=== PATIENT | female | born 1995 | race Hispanic/Latino ===

== ENCOUNTER → 2017-02-19 | Outpatient (CLI) | payer OTHER ==
--- NOTE | 2017-02-19 12:15 | Diagnostic Imaging Report ---
First trimester OB ultrasound. INDICATION: Z34.00. FINDINGS: There is a normal-appearing single intrauterine . An embryo is seen with cardiac activity at 136 beats per minute. The crown-rump length is at 6 weeks and 4 days. WILFRIDO is 10/11/17. IMPRESSION: Live single intrauterine . Dictated by: Dictated on workstation # [id number]
== END ==
LOC: RAD 11:26
PROVIDERS: ATTEND Family Medicine
DX: Z36 Encounter for antenatal screening of mother (principal); Z3A.01 Less than 8 weeks gestation of pregnancy
CPT/HCPCS: 76801

== ENCOUNTER → 2017-05-31 | Outpatient (CLI) | payer SELFPAY ==
--- NOTE | 2017-05-31 16:25 | Diagnostic Imaging Report ---
INDICATION: anatomy survey. TECHNIQUE: Multiple real-time grayscale images were obtained over the gravid uterus. COMPARISON: None FINDINGS: There is a single live intrauterine in transverse lie. The placenta is anteriorly located and there is no evidence of placenta abruption. biometric data is supplied below. The amniotic fluid appears visually appropriate. anatomy survey was performed and the following structures were visualized and are as follows: Cerebral ventricles, cerebellum, cisterna magna, four-chamber heart, kidneys, stomach, bladder, spine and three-vessel cord. Biometrical measurements are as follows: Biparietal 5.4 cm, age 22 weeks 3 days. Head circumference 18.8 cm, age 21 weeks 1 days. Abdominal circumference 15.9 cm, age 21 weeks 1 days. Femur length 3.5 cm, age 21 weeks 0 days. Sonographic estimate age: 21 weeks 3 days. Sonographic estimated date of delivery: 10/08/17. Estimated Weight: 393 gm (+/- 57 gm). LMP percentile: 46%. heart rate: 152 beats per minute. number: 1 of 1. IMPRESSION: 1. The umbilical cord insertion on the abdomen is not well visualized due to positioning. Recommend followup targeted ultrasound to reassess umbilical cord insertion. 2. Otherwise, normal anatomy survey. Dictated by: Dictated on workstation # [id number]
== END ==
LOC: RAD 11:59
PROVIDERS: ATTEND Family Medicine
DX: Z36.89 Encounter for other specified antenatal screening (principal); Z3A.21 21 weeks gestation of pregnancy
CPT/HCPCS: 76805

== ENCOUNTER → 2017-09-19 | Outpatient (CLI) | payer OTHER ==
--- NOTE | 2017-09-19 14:10 | Diagnostic Imaging Report ---
INDICATION: Small for gestational age. TECHNIQUE: Multiple real-time grayscale images were obtained over the gravid uterus. COMPARISON: 05/31/2017. FINDINGS: There is a single live fetus in a cephalic presentation. The placenta is anterior. The amniotic fluid volume is normal. heart rate is recorded at 110 beats per minute. The cord insertion is again not well seen on today's study. No gross abnormality is seen. Biometrical measurements are as follows: Biparietal 8.81 cm, age 35 weeks 5 days. Head circumference 32.35 cm, age 36 weeks 5 days. Abdominal circumference 30.1 cm, age 34 weeks 1 days. Femur length 6.69 cm, age 34 weeks 3 days. Sonographic estimate age: 35 weeks 2 days. Sonographic estimated date of delivery: 10/22/2017. Estimated Weight: 2463 gm (+/- 360 gm). LMP percentile: 8%. heart rate: 110 beats per minute. number: 1 of 1. IMPRESSION: Single live IUP measuring approximately 35 weeks gestational age, lagging approximately 2 weeks when compared with prior ultrasound from 05/31/2017. cord insertion is not well visualized. Dictated by: Dictated on workstation # [id number]
== END ==
LOC: RAD 12:47
PROVIDERS: ATTEND Family Medicine
DX: O36.5930 Maternal care for other known or suspected poor fetal growth, third trimester, not applicable or unspecified (principal); Z3A.35 35 weeks gestation of pregnancy
CPT/HCPCS: 76816

== ENCOUNTER 2017-10-04 13:15 | Outpatient (CLI) | payer OTHER ==
[~2017-10-04] VITALS: Ht 157.5 cm; Wt 63.1 kg
[2017-10-04 13:25] VITALS: BP 115/76
[2017-10-04 13:55] VITALS: BP 102/73
[2017-10-04] MEDS ORDERED: PREN1TAB86 PO (14:05)
[2017-10-04 14:25] VITALS: BP 109/77
[2017-10-04 14:55] VITALS: BP 108/75
[2017-10-04 16:00] VITALS: BP 108/75
--- NOTE | 2017-10-07 20:54 | Physician Query-Final Dx ---
NISREEN NGO 10/07/172053: Clinic Account Progress/Dx Physician Query: Please give diagnosis Date of Service Oct 04, 2017 at 13:15 TA HO DO 10/09/17 0904: Clinic Account Progress/Dx DIAGNOSIS: Diagnosis 1. at 39wk 2. contractions, not in active labor NISREEN NGO Oct 07, 2017 20:54 TA HO DO October 09, 2017 09:04
== END 2017-10-04 16:00 | disposition home or self-care (01) ==
LOC: LDRP 13:15 → WSo 13:15
PROVIDERS: ATTEND Family Medicine
DX: O47.1 False labor at or after 37 completed weeks of gestation (principal); Z3A.39 39 weeks gestation of pregnancy
CPT/HCPCS: 99213

== ENCOUNTER 2017-10-05 09:25 | Observation (INO) | payer OTHER ==
[~2017-10-05] VITALS: Ht 157.5 cm; Wt 63.1 kg
[~2017-10-05 09:25] MED LIST: PREN1TAB86 PO
[2017-10-05 09:55] VITALS: BP 133/89
[2017-10-05] MEDS ORDERED: D5 LR IV SOLUTION 1,000 ML IV SCH (10:26)
[2017-10-05] MEDS ORDERED: BUTORPHANOL INJ 2 MG/ML (STADOL) VIAL IV PRN (10:30)
[2017-10-05] MEDS ORDERED: TERBUTALINE INJ 1 MG/ML (BRETHINE) AMP SC ONE (10:30)
[2017-10-05] MEDS ORDERED: ONDANSETRON 4 MG/2 ML (SDV) Z0FRAN IVP PRN (10:30)
[2017-10-05] MEDS ORDERED: ERYTHROMYCIN OPHTH OINT 1 GM (SINGLE USE) TUBE ONE (10:34)
[2017-10-05] MEDS ORDERED: PHYTONADIONE (VIT. K) NEONATAL 1 MG/0.5 ML AMP ONE (10:34)
--- OUTSIDE RECORDS SUMMARY | 2017-10-05 10:47 | XMS REPORT ---
Author Author RAMÓN GLOVER Organization [facility] Address [address] [place] [address] Care Team Providers Care Rn Advanced Name Role Phone RAMÓN GLOVER Unavailable PROBLEMS Type Condition ICD9-CM Code MAP64-CZ Code Onset Dates Condition Status SNOMED Code Problem Missed periods N92.6 Active 26772901 ALLERGIES No Known Allergies ENCOUNTERS Encounter Location Date Diagnosis [place] [address] [address] October, [place] [address] [address] October, [facility] [address] [address] Sep, [place] [address] [address] Sep, Third trimester Z34.93 ; 36 weeks gestation of Z3A.36 and Small for gestational age P05.10 [place] [address] [address] [place] [id number] [place] [address] Sep, Third trimester Z34.93 and 35 weeks gestation of Z3A.35 [place] [address] [place] [id number] [place] [address] Aug, Third trimester Z34.93 ; Encounter for immunization Z23 and 31 weeks gestation of Z3A.31 [place] [address] [address] Jun, 26 weeks gestation of Z3A.26 and Second trimester Z34.92 [place] [address] [address] Jun, Second trimester Z34.92 and 22 weeks gestation of Z3A.22 [facility] [address] [place] [id number] [place] [address] May, [facility] [address] [place] [id number] [place] [address] 8[address] May, Second trimester Z34.92 and 18 weeks gestation of Z3A.18 [place] [address] [address] [place] [id number] [place] [address] Apr, 14 weeks gestation of Z3A.14 and Second trimester Z34.92 [place] [address] [address] [place] [id number] [place] [address]77- 99[address] Mar, 10 weeks gestation of Z3A.10 and First trimester Z34.90 [place] [address] [place] [id number] [place] [address]- [address] Feb, [place] [address] [place] [id number] [place] [address]- [address] Feb, [facility] [address] [place] [id number] [place] [address]- 12[address] Feb, [place] [address] [place] [id number] [place] [address] Feb, care in first trimester Z34.91 ; Normal , first Z34.00 and 9 weeks gestation of Z3A.09 [place] [address] [address] [place] [id number] [place] [address]- [address] Jan, test positive Z32.01 [facility] [address] [place] [id number] [place] [address] 11252- 287[address] Nov, [place] [address] [address] Nov, Missed periods N92.6 [place] [address] [place] [id number] [place] [address]27- [address] Nov, [place] [address] [address] [facility] [id number] [place] [address] Sep, Missed periods N92.6 [facility] [address] [facility] [id number] [place] [address] Sep, Encounter for test Z32.00 IMMUNIZATIONS No Known Immunizations SOCIAL HISTORY Never Assessed REASON FOR VISIT OB-intake PLAN OF CARE Activity Details Follow Up 4 Weeks Reason: VITAL SIGNS Height 61 in 2017-02-13 Weight 124.1 lbs 2017-02-13 Temperature 97.8 degrees Fahrenheit 2017-02-13 Heart Rate 76 bpm 2017-02-13 Respiratory Rate 20 2017-02-13 BMI 23.448 kg/m2 2017-02-13 Blood pressure systolic 100 mmHg 2017-02-13 Blood pressure diastolic 76 mmHg 2017-02-13 MEDICATIONS Unknown Medications RESULTS Name Result Date Reference Range TSH () 2017-02-13 TSH 4.250 0.450-4.500 CBC 2017-02-13 WBC 6.7 3.4-10.8 RBC 4.89 3.77-5.28 Hemoglobin 13.4 11.1-15.9 Hematocrit 40.3 34.0-46.6 MCV 82 79-97 MCH 27.4 26.6-33.0 MCHC 33.3 31.5-35.7 RDW 14.1 12.3-15.4 Platelets 253 150-379 Neutrophils 50 Lymphs 34 Monocytes 10 Eos 6 Basos 0 Neutrophils (Absolute) 3.3 1.4-7.0 Lymphs (Absolute) 2.3 0.7-3.1 Monocytes(Absolute) 0.6 0.1-0.9 Eos (Absolute) 0.4 0.0-0.4 Baso (Absolute) 0.0 0.0-0.2 Immature Granulocytes 0 Immature Grans (Abs) 0.0 0.0-0.1 ANTIBODY SCREEN 2017-02-13 Antibody Screen Negative Negative BLOOD TYPE/RH FACTOR 2017-02-13 ABO Grouping O Rh Factor Positive RUBELLA ANTIBODIES, IgG 2017-02-13 Rubella Antibodies, IgG 1.55 Immune >0.99 CULTURE, URINE 2017-02-13 Urine Culture, Routine Final report Result 1 No growth TRICHOMONAS (IN HOUSE) 2017-02-13 TRICHOMONAS negative Control + Lot # [id number] Exp date 03/2018 URINE DRUG SCREEN (IN HOUSE) 2017-02-13 Lot # [id number] Exp date Control + COCAINE Negative AMPH Negative MTD Negative THC Negative OPIATE Negative BENZO Negative PCP Negative BAR Negative OXY Negative MAMP Negative TCA Negative BUP Negative MDMA Negative UA LONG DIP (IN HOUSE) 2017-02-13 Lot # [id number] Exp date 25/01/31 Clarity Clear Color Yellow Odor None GLU Negative SARAH Negative KET Negative SG 1.025 BLO Trace-intact pH 5.0 Protein Negative URO 0.2 NIT Negative OZIEL Negative Lot # Exp date BACTERIAL VAGINOSIS (IN HOUSE) 2017-02-13 RESULTS POSITIVE Control + Lot # [id number] Exp date 03/2018 Ultrasound : OB, Early <14 WEEKS 2017-02-19 CULTURE, GENITAL 2017-02-13 Genital Culture, Routine Final report Result 1 GC/CHLAM PROBE (STATE) 2017-02-13 CHLAMYDIA negative GC negative SYPHILIS (STATE) 2017-02-13 HIV (STATE) 2017-02-13 HEP B SURFACE ANTIGEN (STATE) 2017-02-13 HEP B ANTIBODY non reactive HEP B ANTIBODY (RML) HEP B ANTIBODY (STATE) PROCEDURES Procedure Date Ordered Result Body Site RUBELLA ANTIBODY Feb 13, 2017 COMPLETE CBC W/AUTO DIFF WBC Feb 13, 2017 BLOOD TYPING, RH (D) Feb 13, 2017 RBC ANTIBODY SCREEN Feb 13, 2017 URINE CULTURE/COLONY COUNT Feb 13, 2017 No Charge Feb 13, 2017 ASSAY THYROID STIM HORMONE Feb 13, 2017 BLOOD TYPING, ABO Feb 13, 2017 CULTURE, BACTERIA, OTHER Feb 13, 2017 URINALYSIS, AUTO, W/O SCOPE Feb 13, 2017 TRICHOMONAS ASSAY W/OPTIC Feb 13, 2017 VENIPUNCT, ROUTINE* Feb 13, 2017 DRUG TEST PRSMV DIR OPT OBS Feb 13, 2017 INSTRUCTIONS MEDICATIONS ADMINISTERED No Known Medications
--- OUTSIDE RECORDS SUMMARY | 2017-10-05 10:47 | XMS REPORT ---
Author Author RAMÓN GLOVER Organization [facility] Address [address] [place] [address] Care Team Providers Care Marine Technician Name Role Phone RAMÓN GLOVER Unavailable PROBLEMS Type Condition ICD9-CM Code ZVT16-GU Code Onset Dates Condition Status SNOMED Code Problem Missed periods N92.6 Active [id number] ALLERGIES No Information ENCOUNTERS Encounter Location Date Diagnosis [facility] [address] [address] October, [place] [address] [address] October, [facility] [address] [address] Sep, [facility] [address] [place] [id number] [place] [address] Sep, Third trimester Z34.93 ; 36 weeks gestation of Z3A.36 and Small for gestational age P05.10 [place] [address] [address] [place] [id number] [place] [address] 03066- [address] Sep, Third trimester Z34.93 and 35 weeks gestation of Z3A.35 [place] [id number] [place] [id number] [place] [address]14[address] Aug, Third trimester Z34.93 ; Encounter for immunization Z23 and 31 weeks gestation of Z3A.31 [place] [address] [address] [place] [id number] [place] [address]- [address] Jun, 26 weeks gestation of Z3A.26 and Second trimester Z34.92 [place] [address] [address] Jun, Second trimester Z34.92 and 22 weeks gestation of Z3A.22 [facility] [address] [place] [id number] [place] [address]91- [address] May, [facility] [address] [place] [id number] [place] [address] 13912- 9679 May, Second trimester Z34.92 and 18 weeks gestation of Z3A.18 [facility] [address] [place] [id number] [place] [address] 21045- [address]237 Apr, 14 weeks gestation of Z3A.14 and Second trimester Z34.92 [place] [address] [place] [id number] [place] [address] 72627- 8272 Mar, 10 weeks gestation of Z3A.10 and First trimester Z34.90 [place] [address] [place] [id number] [place] [address] 81467- [address] Feb, [place] [address] [place] [id number] [place] [address] 13810- 43[address] Feb, [facility] [address] [place] [id number] [place] [address] 28539- 2111 Feb, [place] [address] [place] [id number] [place] [address] 59666- 0204 Feb, care in first trimester Z34.91 ; Normal , first Z34.00 and 9 weeks gestation of Z3A.09 [place] [address] [place] [id number] [place] [address] 12159- 2666 Jan, test positive Z32.01 [facility] [address] [place] [id number] [place] [address] 49570- 4787 Nov, [place] [address] [address] Nov, Missed periods N92.6 [facility] [address] [place] [id number] [place] [address] 95628- 4479 Nov, [place] [address] [address] [facility] [id number] [place] [address] Sep, Missed periods N92.6 [facility] [address] [facility] [id number] [place] [phone] Sep, Encounter for test Z32.00 IMMUNIZATIONS No Known Immunizations SOCIAL HISTORY Never Assessed REASON FOR VISIT med PLAN OF CARE VITAL SIGNS MEDICATIONS Medication Instructions Dosage Frequency Start Date End Date Duration Status Flagyl 500 mg Orally 2 times a day 1 tablet 12h 11 Feb, 2017 Feb, 07 days Active RESULTS No Results PROCEDURES No Known procedures INSTRUCTIONS MEDICATIONS ADMINISTERED No Known Medications
--- OUTSIDE RECORDS SUMMARY | 2017-10-05 10:47 | XMS REPORT ---
Author Author RAMÓN GLOVER Organization [facility] Address [address] [place] [address] Care Team Providers Care Shell Shop Supervisor Name Role Phone RAMÓN GLOVER Unavailable PROBLEMS Type Condition ICD9-CM Code KTN89-AI Code Onset Dates Condition Status SNOMED Code Problem Missed periods N92.6 Active [id number] ALLERGIES No Information ENCOUNTERS Encounter Location Date Diagnosis [facility] [address] [address] October, [place] [address] [address] October, [facility] [address] [address] Sep, [facility] [address] [place] [id number] [place] [address] 48804- [address] Sep, Third trimester Z34.93 ; 36 weeks gestation of Z3A.36 and Small for gestational age P05.10 [place] [address] [address] [place] [id number] [place] [address] 83455- 7551 Sep, Third trimester Z34.93 and 35 weeks gestation of Z3A.35 [place] [address] [place] [id number] [place] [address] 27138- [address] Aug, Third trimester Z34.93 ; Encounter for immunization Z23 and 31 weeks gestation of Z3A.31 [place] [address] [place] [id number] [place] [address] 35341- 8938 Jun, 26 weeks gestation of Z3A.26 and Second trimester Z34.92 [place] [address] [address] Jun, Second trimester Z34.92 and 22 weeks gestation of Z3A.22 [facility] [address] [place] [id number] [place] [address] 40491- 2486 May, [facility] [address] [place] [id number] [place] [address] 17308- [address] May, Second trimester Z34.92 and 18 weeks gestation of Z3A.18 [facility] [address] [place] [id number] [place] [address] 87476- 3440 Apr, 14 weeks gestation of Z3A.14 and Second trimester Z34.92 [place] [address] [place] [id number] [place] [address] 03202- 7471 Mar, 10 weeks gestation of Z3A.10 and First trimester Z34.90 [place] [address] [place] [id number] [place] [address] 28090- 7512 Feb, [place] [address] [place] [id number] [place] [address] 65535- 18[address] Feb, [facility] [address] [place] [id number] [place] [address] 50726- 8837 Feb, [place] [address] [place] [id number] [place] [address] 04188- 2894 Feb, care in first trimester Z34.91 ; Normal , first Z34.00 and 9 weeks gestation of Z3A.09 [place] [address] [place] [id number] [place] [address] 8[address]13- 0675 Jan, test positive Z32.01 [facility] [address] [place] [id number] [place] [address] 38578- 4752 Nov, [place] [address] [address] Nov, Missed periods N92.6 [facility] [address] [place] [id number] [place] [address] 17298- 3612 Nov, [place] [address] [address] [facility] [id number] [place] [address] Sep, Missed periods N92.6 [facility] [address] [facility] [id number] [address] Sep, Encounter for test Z32.00 IMMUNIZATIONS No Known Immunizations SOCIAL HISTORY Never Assessed REASON FOR VISIT PLAN OF CARE VITAL SIGNS MEDICATIONS Unknown Medications RESULTS No Results PROCEDURES No Known procedures INSTRUCTIONS MEDICATIONS ADMINISTERED No Known Medications
--- OUTSIDE RECORDS SUMMARY | 2017-10-05 10:47 | XMS REPORT ---
Author Author RAMÓN GLOVER [facility] Address [address] [place] [address] Care Team Providers Care Teacher Private Name Role Phone RAMÓN GLOVER Unavailable PROBLEMS Type Condition ICD9-CM Code CKP00-CG Code Onset Dates Condition Status SNOMED Code Problem Missed periods N92.6 Active [id number] ALLERGIES No Known Allergies SOCIAL HISTORY Never Assessed PLAN OF CARE VITAL SIGNS MEDICATIONS Unknown Medications RESULTS No Results PROCEDURES No Known procedures IMMUNIZATIONS No Known Immunizations
--- OUTSIDE RECORDS SUMMARY | 2017-10-05 10:47 | XMS REPORT ---
Author Author RAMÓN GLOVER Organization [facility] Address [address] [place] [address] Care Team Providers Care Supervisor Travel Information Center Name Role Phone RAMÓN GLOVER Unavailable PROBLEMS Type Condition ICD9-CM Code RMN15-PL Code Onset Dates Condition Status SNOMED Code Problem Missed periods N92.6 Active [id number] ALLERGIES No Known Allergies SOCIAL HISTORY Never Assessed PLAN OF CARE Activity Details Follow Up 3 Months with Divya f/u OCP start Reason: VITAL SIGNS Height 61 in 2016-11-13 Weight 129 lbs 2016-11-13 Temperature 97.1 degrees Fahrenheit 2016-11-13 Heart Rate 64 bpm 2016-11-13 Respiratory Rate 18 2016-11-13 BMI 24.37 kg/m2 2016-11-13 Blood pressure systolic 94 mmHg 2016-11-13 Blood pressure diastolic 68 mmHg 2016-11-13 MEDICATIONS Medication Instructions Dosage Frequency Start Date End Date Duration Status Ortho Tri-Cyclen (28) 0.18/0.215/0.25 MG-35 MCG Orally Once a day 1 tablet 24h Nov, 28 day(s) Active RESULTS Name Result Date Reference Range TEST, URINE (IN HOUSE) 2016-11-13 RESULTS negative Lot # [id number] Control + Exp date 01/2018 PROCEDURES Procedure Date Ordered Result Body Site URINE TEST November 13, 2016 IMMUNIZATIONS No Known Immunizations
[2017-10-05 10:51] LABS: BASOPHILS % (AUTO) 0 % (0-10); EOSINOPHILS # (AUTO) 0.2 10^3/uL (0.0-0.3); EOSINOPHILS % (AUTO) 2 % (0-10); HEMATOCRIT 36 % (35-52); HEMOGLOBIN 12.4 G/DL (11.5-16.0); LYMPHOCYTES # (AUTO) 2.1 X 10^3 (1.0-4.0); LYMPHOCYTES % (AUTO) 28 % (12-44); MEAN CORPUSCULAR HEMOGLOBIN 28 PG (25-34); MEAN CORPUSCULAR HGB CONC 34 G/DL (32-36); MEAN CORPUSCULAR VOLUME 83 FL (80-99); MEAN PLATELET VOLUME 11.6 FL (7.4-10.4); MONOCYTES # (AUTO) 0.7 X 10^3 (0.0-1.0); MONOCYTES % (AUTO) 9 % (0-12); NEUTROPHILS # (AUTO) 4.4 X 10^3 (1.8-7.8); NEUTROPHILS % (AUTO) 60 % (42-75); PLATELET COUNT 161 10^3/uL (130-400); RED BLOOD COUNT 4.39 10^6/uL (4.35-5.85); RED CELL DISTRIBUTION WIDTH 13.6 % (10.0-14.5); WHITE BLOOD COUNT 7.4 10^3/uL (4.3-11.0)
[2017-10-05 10:52] LABS: BILIRUBIN,URINE NEGATIVE (NEGATIVE); CLARITY,URINE VERY CLOUDY; COLOR,URINE YELLOW; GLUCOSE, URINE (UA) NEGATIVE (NEGATIVE); KETONES,URINE NEGATIVE (NEGATIVE); LEUKOCYTE ESTERASE ,URINE 2+ (NEGATIVE); NITRITE,URINE NEGATIVE (NEGATIVE); PH,URINE 6.5 (5-9); PROTEIN,URINE 1+ (NEGATIVE); UROBILINOGEN,URINE NORMAL (NORMAL)
[2017-10-05 11:00] LABS: BACTERIA,URINE MODERATE /HPF
[2017-10-05 13:00] VITALS: BP 98/68
[2017-10-05 14:00] VITALS: BP 109/76
[2017-10-05] MEDS ORDERED: CATHETER FLUSH 10 ML SYR IV SCH (14:00)
--- NOTE | 2017-10-05 22:49 | History & Physical-OB ---
OB - Chief Complaint & HPI Date/Time Date of Admission: Date of Admission: Oct 05, 2017 at 10:07 Time Seen by Provider: 14:06 Chief Complaint/History OB-Reason for Admission/Chief: Onset of Labor Hx : 1 Hx Para: 0 Hx Last Menstrual Period: 12/10/16 Expected Date of Delivery: October 11, 2017 Gestational Age in Weeks: 39 Admission Nurse Assessment Rev: Yes Allergies and Home Medications Allergies Coded Allergies: No Known Drug Allergies (Unverified , 10/04/17) Home Medications Vit W-Ca,Fe,FA(<1 mg) 1 Each Tablet, 1 EACH PO DAILY, (Reported) Patient Home Medication List Home Medication List Reviewed: Yes OB - History Hx of Present Care: Yes Ultrasounds: Normal mid trimester US Obstetrical Complications: None Medical Complications: None Information Induced Hypertension: No Maternal Gestational Diabetes: No Hemorrhage: No Obstetrical History Hx : 1 Hx Para: 0 Hx Termination: No Hx Multiple Gestation: No Hx Ectopic : No Hx Stillbirth: No Hx Complication: No Hx Induced Hypertens: No Hx Maternal Gestational Diabet: No Patient Past Medical History No significant past medical history No previous surgeries Social History/Family History HIV/AIDS: No Recent Infectious Disease Expo: No Sexually Transmitted Disease: No Alcohol Use: Denies Use Recreational Drug Use: No Smoking Cessation: Never smoker 2nd Hand Smoke Exposure: No Significant Family Hx Father with hx of Type 2 Diabetes, alive Mother, alive and healthy 5 sisters, 1 brother - all alive and healthy Immunizations Tetanus Booster (TDap): Less than 5yrs Rubella: immune RPR/VDRL: Negative GBS Status: Negative HBsAG: Negative OB - Admission Exam Physical Exam Vitals: Vital Signs 10/05/17 10/05/17 09:55 14:00 Temp 97.8 Pulse 64 Resp 18 B/P (MAP) 109/76 (87) O2 Delivery Room Air HEENT: NCAT Heart: Rhythm Normal Lungs: Clear Abdomen: Gravid Extremities: Normal Reflexes: Normal Cervical Dilatation: 3cm Effacement: 100% Station: -1 Membranes: Intact Heart Rate: 120's Accelerations: Accelerations Present Decelerations: No Decelerations Long-Term Variability: Average (6-25) Contractions on Admission: < 5 Minutes Apart Date/Time Contractions Began;: 10/04/17 Frequency of Contractions: <5 minutes Duration: 30-60 Intensity: Moderate Camilo Scoring Tool (Modified) Dilation (cm): 3-4cm (2) Effacement (%): 80-100% (3) Descent/Station: -1,0 (2) Cervix Consistency: Soft (2) Cervix Position: Anterior (2) Subtract 1 point for: Nulliparity (-1) Camilo Score: 10 Labs Laboratory Tests Test 10/05/17 09:38 10/05/17 10:35 Range/Units Urine Color YELLOW Urine Clarity VERY CLOUDY H Urine pH 6.5 5-9 Urine Specific [place] 1.015 L 1.016-1.022 Urine Protein 1+ H NEGATIVE Urine Glucose (UA) NEGATIVE NEGATIVE Urine Ketones NEGATIVE NEGATIVE Urine Nitrite NEGATIVE NEGATIVE Urine Bilirubin NEGATIVE NEGATIVE Urine Urobilinogen NORMAL NORMAL MG/DL Urine Leukocyte Esterase 2+ H NEGATIVE Urine RBC (Auto) 1+ H NEGATIVE Urine RBC NONE /HPF Urine WBC 5-10 H /HPF Urine Squamous Epithelial Cells 10-25 H /HPF Urine Crystals NONE /LPF Urine Bacteria MODERATE H /HPF Urine Casts NONE /LPF Urine Mucus NEGATIVE /LPF Urine Culture Indicated YES White Blood Count 7.4 4.3-11.0 10^3/uL Red Blood Count 4.39 4.35-5.85 10^6/uL Hemoglobin 12.4 11.5-16.0 G/DL Hematocrit 36 35-52 % Mean Corpuscular Volume 83 80-99 FL Mean Corpuscular Hemoglobin 28 25-34 PG Mean Corpuscular Hemoglobin Concent 34 32-36 G/DL Red Cell Distribution Width 13.6 10.0-14.5 % Platelet Count 161 130-400 10^3/uL Mean Platelet Volume 11.6 H 7.4-10.4 FL Neutrophils (%) (Auto) 60 42-75 % Lymphocytes (%) (Auto) 28 12-44 % Monocytes (%) (Auto) 9 0-12 % Eosinophils (%) (Auto) 2 0-10 % Basophils (%) (Auto) 0 0-10 % Neutrophils # (Auto) 4.4 1.8-7.8 X 10^3 Lymphocytes # (Auto) 2.1 1.0-4.0 X 10^3 Monocytes # (Auto) 0.7 0.0-1.0 X 10^3 Eosinophils # (Auto) 0.2 0.0-0.3 10^3/uL Basophils # (Auto) 0.0 0.0-0.1 10^3/uL OB - Assessment/Plan/Diagnosis Assessment Assessment: other (Early Labor, Term IUP) Admission Dx Term IUP 39 wks Gestation Early Labor Dempsey Admission Status: Inpatient Order (span 2 midnights) Reason for Inpatient Admission: labor Plan Plan: Expectant Management Copy Copies To 1: RAMÓN GLOVER MD, MARGARET E DO Oct 05, 2017 22:49
--- NOTE | 2017-10-05 22:58 | Discharge Summary ---
Diagnosis/Chief Complaint Date of Admission Oct 05, 2017 at 10:07 Date of Discharge Oct 05, 2017 at 18:15 Admission Diagnosis Admission Diagnosis Term IUP 39 wks Gestation Early Labor [place] Discharge Diagnosis Term IUP 39 wks Gestation Early Labor without cervical change [place] Chief Complaint/HPI Chief Complaint/HPI Patient presented with contractions, cervical change present from yesterday. Breathing with contractions. FHR reassuring and reactive. Admitted for labor. Pt is not planning on epidural but would like IV pain medication. Discharge Summary-Simple/Stand Discharge Physical Examination Allergies: Coded Allergies: No Known Drug Allergies (Unverified , 10/04/17) Vitals & I&Os Vital Sign - Last 12Hours Date Time Temp Pulse Resp B/P (MAP) Pulse Ox O2 Delivery O2 Flow Rate FiO2 10/05/17 14:00 64 18 109/76 (87) Room Air 10/05/17 09:55 97.8 General Appearance: Alert, Oriented X3, Cooperative, No Acute Distress HEENT: Atraumatic, EOMI, Mucous Memb Moist/[place] Respiratory: Clear to Auscultation, Normal Air Movement Cardiovascular: Regular Rate, Normal S1, Normal S2 Abdominal: Normal Bowel Sounds, Soft, No Tenderness, Other (Gravid) Extremities: No Clubbing, No Cyanosis, Normal Pulses Skin: No Rashes, No Significant Lesion Neuro: Normal Gait, Normal Speech, Normal Tone, Sensation Intact, Cranial Nerves 3-12 NL, Reflexes 2+ Psych/Mental Status: Mental Status NL, Mood NL Hospital Course Patient at term with cervical change since evaluation yesterday and regular and painful contractions. Admitted in early labor. IV placed, given IV fluid bolus and 1 mg stadol IVP for pain relief. Over the course of a few hours contractions spaced out and patient reported that she was not having any pain. She was monitored throughout the day, and found to have <6 contractions per hour , little to no pain with contractions, and no cervical change. Augmentation was offered, as the patient was term and with a favorable cervix, she was also given the option for discharge and returning when contractions resume. Patient requested discharge. Reactive NST obtained and pt discharged with return precautions.. Discharge Condition at discharge Stable, not in active labor Instructions to patient/family Please see electronic discharge instructions given to patient. Discharge Medications Reviewed and agree with Discharge Medication list on patient's Discharge Instruction sheet Clinical Quality Measures DVT/VTE Risk/Contraindication: Risk Factor Score Per Nursin RFS Level Per Nursing on Admit: 1=Low/No VTE PPX Copy Copies To 1: RAMÓN GLOVER MD, MARGARET E DO Oct 05, 2017 22:58
[2017-10-09] MEDS ORDERED: DOCU100C37 PO (07:54)
[2017-10-09] MEDS ORDERED: ACHD5005 PO (07:54)
[2017-10-09] MEDS ORDERED: IBUP-844 PO (07:54)
[2017-10-09] MEDS ORDERED: FERR325T18 PO (07:54)
== END 2017-10-05 18:15 | disposition home or self-care (01) ==
LOC: LDRP 09:25 → WSo 09:35 → LDRP 09:35 → WSo 10:07 → LDRP 10:07 → UNDOADMIN 10:07 → UNDODISIN 18:15 → EDSTATUS 10-10 14:40
PROVIDERS: ADMIT Family Medicine; ATTEND Family Medicine
DX: O47.1 False labor at or after 37 completed weeks of gestation (principal); Z3A.39 39 weeks gestation of pregnancy
CPT/HCPCS: 36415; 81000; 85025; 86850; 86900; 86901; 87088; 96361; 96374; 99211; G0378

== ENCOUNTER 2017-10-06 03:59 | Inpatient (IN) | payer MEDICAID, OTHER ==
[2017-10-06] VITALS (40 sets, daily range): BP systolic 92–151; BP diastolic 55–93
[~2017-10-06] VITALS: Ht 157.5 cm; Wt 63.5 kg
[2017-10-06] MEDS ORDERED: D5 LR IV SOLUTION 1,000 ML IV ONE ×2 (04:59→05:00)
[2017-10-06] MEDS ORDERED: BUTORPHANOL INJ 2 MG/ML (STADOL) VIAL IV ONE (05:00)
[2017-10-06 05:31] LABS: BILIRUBIN,URINE NEGATIVE (NEGATIVE); COLOR,URINE YELLOW; GLUCOSE, URINE (UA) NEGATIVE (NEGATIVE); KETONES,URINE NEGATIVE (NEGATIVE); LEUKOCYTE ESTERASE ,URINE 2+ (NEGATIVE); NITRITE,URINE NEGATIVE (NEGATIVE); PH,URINE 7 (5-9); PROTEIN,URINE NEGATIVE (NEGATIVE); UROBILINOGEN,URINE NORMAL (NORMAL)
[2017-10-06 05:37] LABS: CLARITY,URINE SLIGHTLY CLOUDY
[2017-10-06 05:39] LABS: BACTERIA,URINE MODERATE /HPF; RBC,URINE RARE /HPF
[2017-10-06] MEDS: D5 LR IV SOLUTION 1,000 ML IV SCH ×2 (06:15→14:11)
[2017-10-06] MEDS ORDERED: BUTORPHANOL INJ 2 MG/ML (STADOL) VIAL IV PRN (08:30)
[2017-10-06] MEDS ORDERED: ONDANSETRON 4 MG/2 ML (SDV) Z0FRAN IVP PRN (08:30)
[2017-10-06] MEDS ORDERED: SUFENTA 0.6MCG/ML BUPIVA 0.125 100 ML ONE (08:37)
[2017-10-06] MEDS ORDERED: fentaNYL INJECTION 100 MCG/2 ML AMP ONE ×2 (09:01→16:37)
--- NOTE | 2017-10-06 09:16 | History & Physical-OB ---
OB - Chief Complaint & HPI Date/Time Date of Admission: Date of Admission: Oct 06, 2017 at 08:17 Time Seen by Provider: 10:22 Chief Complaint/History OB-Reason for Admission/Chief: Onset of Labor Hx : 1 Hx Para: 0 Hx Last Menstrual Period: 12/10/16 Expected Date of Delivery: October 11, 2017 Gestational Age in Weeks: 39 Gestational Age in Days: 2 Admission Nurse Assessment Rev: Yes Allergies and Home Medications Allergies Coded Allergies: No Known Drug Allergies (Unverified , 10/04/17) Home Medications Vit W-Ca,Fe,FA(<1 mg) 1 Each Tablet, 1 EACH PO DAILY, (Reported) Patient Home Medication List Home Medication List Reviewed: Yes OB - History Hx of Present Care: Yes Ultrasounds: Normal mid trimester US Obstetrical Complications: None Medical Complications: None Information Induced Hypertension: No Maternal Gestational Diabetes: No Hemorrhage: No Obstetrical History Hx : 1 Hx Para: 0 Hx # Term Pregnancies: 0 Hx # Pregnancies: 0 Number of Living Children: 0 Hx Termination: No Hx Total # of Abortions (Spona: 0 Hx Multiple Gestation: No Hx Stillbirth: No Hx Complication: No Hx Induced Hypertens: No Hx Maternal Gestational Diabet: No Delivery History Hx Dystocia: No Hx Forceps Assisted Delivery: No Hx Vacuum Extraction Assisted: No Hx Placenta Abnormality: No Hx Distress: No Hx Large For Gestational Age I: No Hx Small for Gestational Age I: No Hx Section: No Hx Vaginal Delivery Post C-Sec: No Hx Blood Disorders: No Adverse Rxn to Tranfusion: No Patient Past Medical History No significant past medical history No previous surgeries Social History/Family History HIV/AIDS: No Recent Infectious Disease Expo: No Sexually Transmitted Disease: No Alcohol Use: Denies Use Recreational Drug Use: No Smoking Cessation: Never smoker 2nd Hand Smoke Exposure: No Immunizations Tetanus Booster (TDap): Less than 5yrs Rubella: immune RPR/VDRL: Negative GBS Status: Negative HBsAG: Negative OB - Admission Exam Physical Exam Vitals: Vital Signs 10/06/17 10/06/17 04:13 08:30 Temp 98.4 Pulse 64 Resp 18 B/P (MAP) 109/74 (86) O2 Delivery Room Air HEENT: NCAT Heart: Rhythm Normal Lungs: Clear, Equal Abdomen: Gravid Extremities: Normal Reflexes: Normal Cervical Dilatation: 5cm Effacement: 100% Station: 0 Membranes: Ruptured Amniotic Fluid: Unevaluable Heart Rate: 130's Accelerations: Accelerations Present Longterm Variability: Average (6-25) Contractions on Admission: < 5 Minutes Apart Date/Time Contractions Began;: 10/03/17; became stronger and regular 10/06/17 at 0300 Intensity: Moderate Labs Laboratory Tests Test 10/06/17 04:15 Range/Units Urine Color YELLOW Urine Clarity SLIGHTLY CLOUDY Urine pH 7 5-9 Urine Specific [place] 1.010 L 1.016-1.022 Urine Protein NEGATIVE NEGATIVE Urine Glucose (UA) NEGATIVE NEGATIVE Urine Ketones NEGATIVE NEGATIVE Urine Nitrite NEGATIVE NEGATIVE Urine Bilirubin NEGATIVE NEGATIVE Urine Urobilinogen NORMAL NORMAL MG/DL Urine Leukocyte Esterase 2+ H NEGATIVE Urine RBC (Auto) 4+ H NEGATIVE Urine RBC RARE /HPF Urine WBC 2-5 /HPF Urine Squamous Epithelial Cells 10-25 H /HPF Urine Crystals NONE /LPF Urine Bacteria MODERATE H /HPF Urine Casts NONE /LPF Urine Mucus NEGATIVE /LPF Urine Culture Indicated YES OB - Assessment/Plan/Diagnosis Assessment Assessment: active labor Admission Dx Active Labor Term IUP, 39 wks Gestation Prolonged Latent Phase of Labor Admission Status: Inpatient Order (span 2 midnights) Reason for Inpatient Admission: delivery Plan Plan: Other (augmentation with arom and pitocin per protocol) Other Plan Epidural at pt request. Pt was admitted yesterday, but contractions spaced out significantly after IV fluids and one dose of IV pain medication. Patient was given option of augmentation yesterday afternoon, but declined and requested to go home yesterday evening. This morning patient presented back to labor and delivery with return of painful contractions, requesting medication and admission for delivery. Will admit, have epidural placed, then AROM and augment with pitocin. Addendum: Patient progressed to complete and felt urge to push. Was set up to push and began pushing. Variable decelerations with pushing. After pt had pushed for some time with RN, present at bedside. Pt pushing, but fetus persistently OP. Able to rotate to ROT, but infant rotates back to OP position. Minimal progress after I had been present for 45 minutes, pt's pushing becoming less effective due to maternal exhaustion. Pt and FOB agreeable, MightyVac placed and 45 mmHg suction and traction applied with maternal pushing efforts. Pop off x3 and no significant descent of station noted. Dr. Apple contacted regarding patient status, and requested to come and evaluate patient for surgical delivery. FHR becoming tachycardic. Arrived and evaluated patient. Agrees proceeding with surgical delivery is the best option. Dr. Melo translating for patient, who consents for surgical delivery. Copy Copies To 1: RAMÓN GLOVER MD, MARGARET E DO Oct 06, 2017 09:15
[2017-10-06] MEDS ORDERED: LACTATED RINGERS 1,000 ML IV ONE (09:40)
[2017-10-06] MEDS ORDERED: NALOXONE 0.4 MG/ML 1 ML (NARCAN) VIAL IV PRN ×2 (09:45)
[2017-10-06] MEDS ORDERED: ONDANSETRON 4 MG/2 ML (SDV) Z0FRAN IV PRN (09:45)
[2017-10-06] MEDS ORDERED: diphenhydrAMINE 50 MG/ML INJ (BENADRYL) IV PRN (09:45)
[2017-10-06] MEDS ORDERED: EPIDURAL (SUFENTA 0.6MCG/ML BUPIVA 0.125%) 100 ML BAG EPI PRN (09:45)
[2017-10-06] MEDS ORDERED: METOCLOPRAMIDE INJ 10 MG/2 ML (REGLAN) IV PRN (09:45)
[2017-10-06] MEDS ORDERED: TERBUTALINE INJ 1 MG/ML (BRETHINE) AMP SC PRN (10:00)
[2017-10-06] MEDS ORDERED: OXYTOCIN/NORMAL SALINE 500 ML IV SCH ×2 (10:02→17:44)
[2017-10-06 10:49] LABS: BILIRUBIN,URINE NEGATIVE (NEGATIVE); CLARITY,URINE CLEAR; COLOR,URINE YELLOW; GLUCOSE, URINE (UA) 1+ (NEGATIVE); KETONES,URINE NEGATIVE (NEGATIVE); LEUKOCYTE ESTERASE ,URINE NEGATIVE (NEGATIVE); NITRITE,URINE NEGATIVE (NEGATIVE); PH,URINE 6.5 (5-9); PROTEIN,URINE NEGATIVE (NEGATIVE); UROBILINOGEN,URINE NORMAL (NORMAL)
[2017-10-06 11:08] LABS: BACTERIA,URINE TRACE /HPF; SQUAMOUS EPITHELIAL CELL,UR RARE /HPF
[2017-10-06] MEDS ORDERED: LIDOCAINE/EPI 2% 1:200,00 (XYLOCAINE) 10 ML VIAL ONE (14:09)
[2017-10-06] MEDS ORDERED: ceFAZolin 2 GM IV Premixed 50 ML IV ONE (16:15)
[2017-10-06] MEDS ORDERED: AZITHROMYCIN INJECTION 500 MG in NS (IVPB) 250 ML IV ONE (16:15)
[2017-10-06] MEDS ORDERED: LACTATED RINGERS 1,000 ML IV PRN ×2 (16:18)
[2017-10-06] MEDS ORDERED: CITRIC ACID/SOB CIT (BICITRA) 30 ML UDC ONE (16:19)
--- NOTE | 2017-10-06 16:22 | Progress Note-Pre Operative ---
Pre-Operative Progress Note H&P Reviewed The H&P was reviewed, patient examined and no changes noted. Asked to consult by Dr. Tiffany Varela due to failure to descend. She has been complete and pushing for 2 hours and has had a failed vacuum delivery. The fetus is in the OP or OT position and has a very large caput that descend to +2 position, but the bony head is still above 0 station. I had her trial push and she is very tired but pushes well. However, the fetus is tachycardic with variable decelerations. I am unable to rotate to OA presentation due to the hearttones. the decision has been made to proceed with a primary section. Explanation was made to the patient and her SO by Dr. Melo and Dr. Varela and myself due to the language barrier. Consents have been signed. Ancef and Zithromax started. Date Seen by Provider: Oct 06, 2017 Time Seen by Provider: 16:05 Date H&P Reviewed: Oct 06, 2017 Time H&P Reviewed: 16:15 Pre-Operative Diagnosis: failure to descend, tachycardia FOREIGN MURPHY DO Oct 06, 2017 16:22
[2017-10-06] MEDS ORDERED: TERBUTALINE INJ 1 MG/ML (BRETHINE) AMP SC ONE (16:30)
[2017-10-06] MEDS ORDERED: METOCLOPRAMIDE INJ 10 MG/2 ML (REGLAN) IV ONE (16:30)
[2017-10-06] MEDS ORDERED: CITRIC ACID/SOB CIT (BICITRA) 30 ML UDC PO ONE (16:30)
[2017-10-06] MEDS ORDERED: FAMOTIDINE 20MG/2ML IV (PEPCID) IV ONE (16:30)
[2017-10-06] MEDS ORDERED: LIDOCAINE PF 2% 5 ML (XYLOCAINE) VIAL ONE (16:37)
[2017-10-06] MEDS ORDERED: BUPIVACAINE 0.25% 30 ML (SENSORCAINE) VIAL ONE (16:37)
[2017-10-06] MEDS ORDERED: OXYTOCIN/NORMAL SALINE 1,000 ML IV ONE (16:49)
[2017-10-06] MEDS ORDERED: 0.9% SODIUM CHLORIDE PF INJ 20 ML VIAL ONE (16:49)
[2017-10-06] MEDS ORDERED: BUPIVACAINE 0.5% 30 ML (SENSORCAINE) VIAL ONE (16:49)
[2017-10-06] MEDS ORDERED: KETOROLAC 30 MG/ML VIAL ONE (17:35)
[2017-10-06] MEDS ORDERED: D5 LR IV SOLUTION 1,000 ML IV SCH (17:44)
[2017-10-06] MEDS ORDERED: MEASLES,MUMPS,RUBELLA 1 EA INJ SC SCH (17:45)
[2017-10-06] MEDS ORDERED: TETANUS,DIPTH,PERTUSS P/F (BOOSTRIX) 0.5 ML VIAL IM SCH (17:45)
--- NOTE | 2017-10-06 18:00 | Cesarean Section Operative ---
Procedure Procedure Note Pre-operative Diagnosis: Crystal Quintero is a 20 /Para 1 / 0, Gestational Age 39 3/7 weeks, failure to descend, tachycardia, Post-operative Diagnosis: same, Ot Presentation, cephalopelvic disproportion Procedure: Primary low transverse section, extension of the incision/ T 'd incision Physician: FOREIGN MURPHY Support Specialist: Tiffany Varela DO Estimated blood loss: 800 mL Disposition: stable Findings: Viable female , Apgars [], weight [], intact placenta, 3vc, normal appearing uterus, tubes, and ovaries. Indications:Crystal Quintero is a 20 /Para 1 / 0,Gestational Age 39 3/7 weeks, failure to descend, tachycardia. Procedure Details: The patient was seen in pre-op and the procedure was discussed with the patient in full, including the risks, benefits, and alternatives. All questions were answered. The patient was taken to the operating room and a time out was performed, verifying patient and procedure. After epidural anesthesia was redosed by our anesthesia colleagues, the patient was placed in the dorsal supine with leftward tilt for uterine displacement.~ Her abdomen was then prepped and draped in the typical sterile fashion. A Pfannenstiel skin incision was made using a scalpel and carried down through the underlying fascia. The fascia was incised in the midline and tented up using Jelena clamps. On both the inferior and superior fascia side the rectus muscle was dissected off bluntly and sharply using Pisano scissors. The peritoneum was identified and entered bluntly in the midline. This was then stretched laterally using manual strength. After entering the abdominal cavity and confirming lack of intraperitoneal adhesions, a large Shine retractor was placed and the lower uterine segment was visualized. A scalpel was utilized to make a low transverse uterine incision. There was meconium fluid noted. The shoulder was at the level of the incision and the baby was in the Occiput transverse position. The right hand also delivered through the incision. The infant's head was grasped and brought to the level of the incision. It was below the pubic bone and I had a nurse elevate the head out of the vagina. I had to T the incision to deliver the head. Fundal pressure was applied and was delivered with some difficulty with assistance of the silastic suction. Mouth and nares were suctioned with bulb suction. After the umbilical cord was clamped and cut, the infant was handed off to the pediatric staff. A sample of cord blood was then obtained. Cord gases were sent. pH 7.24. The placenta was delivered intact via uterine massage. The uterus was exteriorized and cleared of all clots and debris. The uterine incision extended on the left down to the level of the cervix. The incision was closed in two layers. I then closed the T portion of the incision in three layers. The low transverse incision was closed using 0 Vicryl in a running locked fashion. A second imbricated layer was placed using 0 Vicryl in a running fashion as well. The uterus was flexed forward and the posterior rectouterine space was inspected and cleared of all clots and debris. Again the hysterotomy site was examined and hemostasis was observed. The bilateral tubes and ovaries appeared normal. The uterus was placed back into the abdominal cavity and abdominal gutters were cleared of all clots and debris. A final check of the uterine incision showed it to be hemostatic. The peritoneum was closed using 3-0 Vicryl in a running fashion. The fascia was closed with 0 Vicryl in a running fashion. The subcutaneous space was hemostatic, and irrigated. The subcutaneous space was closed with 3-0 Vicryl in several single interrupted stitches. The skin was then closed using 4-0 Monocryl in a running subcuticular fashion. The skin edges were reapproximated together and were hemostatic. A pressure dressing was applied. All sponge, lap and needle counts were correct at the end of the procedure per nursing. Vitals - Labs Vital Signs - I&O Vital Signs Date Time Temp Pulse Resp B/P (MAP) Pulse Ox O2 Delivery O2 Flow Rate FiO2 10/06/17 16:30 103.0 10/06/17 16:30 103.0 10/06/17 16:15 10/06/17 16:00 93 128/80 (96) 10/06/17 15:45 112 135/67 (89) 10/06/17 15:30 96 151/82 (105) 10/06/17 15:15 76 125/72 (89) 10/06/17 15:00 104 117/55 (75) 10/06/17 14:45 80 134/93 (107) 10/06/17 14:30 10/06/17 14:15 77 137/82 (100) 99 10/06/17 14:00 81 124/73 (90) 99 10/06/17 13:45 98.1 71 18 123/77 (92) 99 10/06/17 13:30 71 114/77 (89) 99 10/06/17 13:15 69 123/78 (93) 99 10/06/17 13:00 70 106/71 (83) 99 10/06/17 12:45 74 108/73 (85) 98 10/06/17 12:30 62 108/72 (84) 98 10/06/17 12:15 65 16 99/69 (79) 98 10/06/17 12:00 67 99/66 (77) 97 10/06/17 11:45 63 99/67 (78) 97 10/06/17 11:30 73 92/64 (73) 97 10/06/17 11:15 78 16 98 10/06/17 11:00 73 95/66 (76) 98 10/06/17 10:45 78 16 102/70 (81) 98 10/06/17 10:30 98.9 74 97 10/06/17 10:20 64 94/61 (72) 97 10/06/17 10:15 72 98/58 (71) 97 10/06/17 10:10 75 98/60 (73) 97 10/06/17 10:00 74 16 101/62 (75) 97 10/06/17 09:55 71 103/70 (81) 96 10/06/17 09:53 80 98/69 (79) 97 10/06/17 09:50 80 97/66 (76) 97 10/06/17 09:45 77 98/67 (77) 100 10/06/17 09:42 70 96/63 (74) 97 10/06/17 09:39 73 103/68 (80) 97 10/06/17 09:36 110 121/65 (83) 97 10/06/17 09:33 74 101/68 (79) 93 10/06/17 09:30 93 116/72 (87) 100 10/06/17 09:25 90 133/79 (97) 10/06/17 09:20 79 118/77 (91) 10/06/17 09:15 74 18 108/67 (81) 4/29/18 08:30 98.4 10/06/17 04:13 98.3 64 18 109/74 (86) Room Air I & O 10/06/17 07:00 Intake Total 1000 ml Balance 1000 ml Labs Laboratory Tests 10/06/17 04:15: Urine Color YELLOW, Urine Clarity SLIGHTLY CLOUDY, Urine pH 7, Urine Specific [place] 1.010L, Urine Protein NEGATIVE, Urine Glucose (UA) NEGATIVE, Urine Ketones NEGATIVE, Urine Nitrite NEGATIVE, Urine Bilirubin NEGATIVE, Urine Urobilinogen NORMAL, Urine Leukocyte Esterase 2+H, Urine RBC (Auto) 4+H, Urine RBC RARE, Urine WBC 2-5, Urine Squamous Epithelial Cells 10-25H, Urine Crystals NONE, Urine Bacteria MODERATEH, Urine Casts NONE, Urine Mucus NEGATIVE, Urine Culture Indicated YES 10/06/17 10:40: Urine Color YELLOW, Urine Clarity CLEAR, Urine pH 6.5, Urine Specific [place] 1.005L, Urine Protein NEGATIVE, Urine Glucose (UA) 1+H, Urine Ketones NEGATIVE, Urine Nitrite NEGATIVE, Urine Bilirubin NEGATIVE, Urine Urobilinogen NORMAL, Urine Leukocyte Esterase NEGATIVE, Urine RBC (Auto) NEGATIVE, Urine RBC NONE, Urine WBC NONE, Urine Squamous Epithelial Cells RARE, Urine Crystals NONE, Urine Bacteria TRACE, Urine Casts NONE, Urine Mucus NEGATIVE, Urine Culture Indicated NO FOREIGN MURPHY DO Oct 06, 2017 18:00
[2017-10-06] MEDS: KETOROLAC 30 MG/ML VIAL IVP SCH ×2 (18:10→23:40)
[2017-10-06] MEDS: IBUPROFEN 600 MG (MOTRIN) TAB PO SCH ×2 (19:16→23:48)
[2017-10-06] MEDS: CATHETER FLUSH 10 ML SYR IV SCH ×2 (19:17→23:47)
[2017-10-06] MEDS ORDERED: HYDROmorphone 2 MG/ML VIAL (DILAUDID) ONE (19:55)
[2017-10-06] MEDS: HYDROmorphone 2 MG/ML VIAL (DILAUDID) IVP PRN (20:03)
[2017-10-06] MEDS: AMPICILLIN/SULBACTAM INJECTION 1.5 GM in NS (IVPB) 100 ML IV SCH (21:55)
[2017-10-06] MEDS ORDERED: CATHETER FLUSH 10 ML SYR IV SCH (22:00)
[2017-10-06] MEDS ORDERED: ceFAZolin 1,000 MG (ANCEF) VIAL ONE (23:29)
[2017-10-06] MEDS ORDERED: NS (IVPB) 100 ML ONE (23:29)
[2017-10-06] MEDS: ceFAZolin INJECTION 1,000 MG in NS (IVPB) 100 ML IV SCH (23:40)
[2017-10-06] MEDS: DOCUSATE SODIUM 100 MG (COLACE) CAP PO SCH (23:40)
[2017-10-07] VITALS (22 sets, daily range): BP systolic 87–115; BP diastolic 54–82
[2017-10-07] MEDS: HYDROmorphone 2 MG/ML VIAL (DILAUDID) IVP PRN (04:04)
[2017-10-07] MEDS: AMPICILLIN/SULBACTAM INJECTION 1.5 GM in NS (IVPB) 100 ML IV SCH ×3 (05:20→22:13)
[2017-10-07] MEDS: ceFAZolin INJECTION 1,000 MG in NS (IVPB) 100 ML IV SCH (06:02)
[2017-10-07] MEDS: CATHETER FLUSH 10 ML SYR IV SCH ×3 (06:03→22:29)
[2017-10-07] MEDS: KETOROLAC 30 MG/ML VIAL IVP SCH ×2 (06:03→12:51)
[2017-10-07 06:05] LABS: BASOPHILS % (AUTO) 0 % (0-10); EOSINOPHILS % (AUTO) 0 % (0-10); HEMATOCRIT 21 % (35-52); HEMOGLOBIN 7.3 G/DL (11.5-16.0); LYMPHOCYTES # (AUTO) 1.2 X 10^3 (1.0-4.0); LYMPHOCYTES % (AUTO) 9 % (12-44); MEAN CORPUSCULAR HEMOGLOBIN 29 PG (25-34); MEAN CORPUSCULAR HGB CONC 34 G/DL (32-36); MEAN CORPUSCULAR VOLUME 84 FL (80-99); MEAN PLATELET VOLUME 11.5 FL (7.4-10.4); MONOCYTES # (AUTO) 0.9 X 10^3 (0.0-1.0); MONOCYTES % (AUTO) 7 % (0-12); NEUTROPHILS # (AUTO) 11.1 X 10^3 (1.8-7.8); NEUTROPHILS % (AUTO) 84 % (42-75); PLATELET COUNT 133 10^3/uL (130-400); RED BLOOD COUNT 2.56 10^6/uL (4.35-5.85); RED CELL DISTRIBUTION WIDTH 13.3 % (10.0-14.5); WHITE BLOOD COUNT 13.2 10^3/uL (4.3-11.0)
[2017-10-07] MEDS: IBUPROFEN 600 MG (MOTRIN) TAB PO SCH ×3 (06:19→21:56)
[2017-10-07] MEDS: DOCUSATE SODIUM 100 MG (COLACE) CAP PO SCH (09:29)
[2017-10-07] MEDS: HYDROcodone/APAP 5 MG/325 MG (LORTAB) TAB PO PRN ×2 (09:30→14:19)
[2017-10-07] MEDS: D5 LR IV SOLUTION 1,000 ML IV SCH ×2 (10:05→21:56)
--- NOTE | 2017-10-07 13:38 | Anesthesia-Regional Post-Op ---
Regional Patient Condition Mental Status: Alert, Oriented x3 Circulation: Same as Pre-Op Headache: Absent Sensation: Full Recovery Motor Block: Absent Post Op Complications Complications None Follow Up Care/Instructions Patient Instructions None needed. Anesthesia/Patient Condition Patient is doing well, no complaints, stable vital signs, no apparent adverse anesthesia problems. No complications reported per nursing. GUIDO MCDANIEL CRNA Oct 07, 2017 13:38
--- NOTE | 2017-10-07 14:07 | Postpartum Progress Note ---
Post Op Post-operative Day #1 s/p PLTCS failure to descend, tachycardia, chorioamnionitis, failed vacuum. At least 800 ml ebl at time of CS. Chorioamnionitis and started on Unasyn. Apparently, RN was confused and also continued the Ancef (done preop for CS only ). This has been stopped. Unasyn is for chorioamnionitis. Patient is tachycardic and has had sweats without fever. States she is not "dizzy" but unsure if she understands the terminology. did not void until 6 hours after Miller removed and then voided 900 ml. Subjective: Patient is without complaints. Ambulating, voiding after miller removed. Tolerating a regular diet without nausea or vomiting. Normal lochia. Pain is well controlled with oral pain medications. Passing flatus. Objective: 10/07/17 10/07/17 10/07/17 10/07/17 04:04 08:15 11:55 12:02 Temp 99.6 98.9 97.1 97.4 Pulse 130 104 91 96 Resp 18 15 16 14 B/P (MAP) 102/80 (87) 104/59 (74) 98/60 (73) 102/64 (77) Pulse Ox 99 99 98 98 O2 Delivery Room Air Room Air Room Air Room Air 10/07/17 00:00 Intake Total 2550 ml Output Total 150 ml Balance 2400 ml Laboratory Tests Test 10/07/17 05:55 Range/Units White Blood Count 13.2 H 4.3-11.0 10^3/uL Red Blood Count 2.56 L 4.35-5.85 10^6/uL Hemoglobin 7.3 #L 11.5-16.0 G/DL Hematocrit 21 L 35-52 % Mean Corpuscular Volume 84 80-99 FL Mean Corpuscular Hemoglobin 29 25-34 PG Mean Corpuscular Hemoglobin Concent 34 32-36 G/DL Red Cell Distribution Width 13.3 10.0-14.5 % Platelet Count 133 130-400 10^3/uL Mean Platelet Volume 11.5 H 7.4-10.4 FL Neutrophils (%) (Auto) 84 H 42-75 % Lymphocytes (%) (Auto) 9 L 12-44 % Monocytes (%) (Auto) 7 0-12 % Eosinophils (%) (Auto) 0 0-10 % Basophils (%) (Auto) 0 0-10 % Neutrophils # (Auto) 11.1 H 1.8-7.8 X 10^3 Lymphocytes # (Auto) 1.2 1.0-4.0 X 10^3 Monocytes # (Auto) 0.9 0.0-1.0 X 10^3 Eosinophils # (Auto) 0.0 0.0-0.3 10^3/uL Basophils # (Auto) 0.0 0.0-0.1 10^3/uL Physical Exam: General - Alert and oriented, no apparent distress Abdomen - Soft, appropriately tender to palpation, non-distended, fundus firm at umbilicus Incision - clean, dry and intact; no erythema or induration, no drainage Extremities - no edema, negative Derek's bilaterally Assessment: 1. post-operative day # 1, status post PLTCS, failed vacuum, failure to descend , OP presentation/cpd, chorioamnionitis.. Recovering well, hemodynamically stable 2. Acute blood loss anemia - symptomatic, - transfuse 2 units PRBCS. Plan: Routine post-operative care. Encourage breast feeding. Encourage ambulation. VTE prophylaxis: SCDs. Ferrous sulfate supplementation./transfusion of 2 units PRBCs. Plan for discharge [] Vitals - Labs Vital Signs - I&O Vital Signs Date Time Temp Pulse Resp B/P (MAP) Pulse Ox O2 Delivery O2 Flow Rate FiO2 10/07/17 12:02 97.4 96 14 102/64 (77) 98 Room Air 10/07/17 11:55 97.1 91 16 98/60 (73) 98 Room Air 10/07/17 08:15 98.9 104 15 104/59 (74) 99 Room Air 10/07/17 04:04 99.6 130 18 102/80 (87) 99 Room Air 10/06/17 23:40 98.5 113 18 111/75 (87) 100 Room Air 10/06/17 21:16 Room Air 10/06/17 21:10 97.5 102 18 104/75 (85) 98 Room Air 10/06/17 19:50 100.2 115 18 102/69 (80) 98 Room Air 10/06/17 16:30 103.0 10/06/17 16:30 103.0 10/06/17 16:15 10/06/17 16:00 93 128/80 (96) 10/06/17 15:45 112 135/67 (89) 10/06/17 15:30 96 151/82 (105) 10/06/17 15:15 76 125/72 (89) 10/06/17 15:00 104 117/55 (75) 10/06/17 14:45 80 134/93 (107) 10/06/17 14:30 10/06/17 14:15 77 137/82 (100) 99 I & O 10/07/17 07:00 Intake Total 4750 ml Output Total 1050 ml Balance 3700 ml Labs Laboratory Tests 10/07/17 05:55: White Blood Count 13.2H, Red Blood Count 2.56L, Hemoglobin 7.3#L, Hematocrit 21L , Mean Corpuscular Volume 84, Mean Corpuscular Hemoglobin 29, Mean Corpuscular Hemoglobin Concent 34, Red Cell Distribution Width 13.3, Platelet Count 133, Mean Platelet Volume 11.5H, Neutrophils (%) (Auto) 84H, Lymphocytes (%) (Auto) 9L, Monocytes (%) (Auto) 7, Eosinophils (%) (Auto) 0, Basophils (%) (Auto) 0, Neutrophils # (Auto) 11.1H, Lymphocytes # (Auto) 1.2, Monocytes # (Auto) 0.9, Eosinophils # (Auto) 0.0, Basophils # (Auto) 0.0 Microbiology 10/06/17 Urine Culture - Preliminary, Resulted FOREIGN MURPHY DO Oct 07, 2017 2:07 pm
[2017-10-07] MEDS ORDERED: diphenhydrAMINE 25 MG TAB (BENADRYL) PO NR (14:15)
[2017-10-07] MEDS ORDERED: NS IV 500 ML 500 ML IV SCH (15:00)
[2017-10-08] MEDS: IBUPROFEN 600 MG (MOTRIN) TAB PO SCH ×5 (00:21→23:45)
[2017-10-08] MEDS: DOCUSATE SODIUM 100 MG (COLACE) CAP PO SCH ×3 (00:21→20:28)
[2017-10-08 00:22] VITALS: BP 125/84
[2017-10-08] MEDS: HYDROcodone/APAP 5 MG/325 MG (LORTAB) TAB PO PRN (00:22)
[2017-10-08 03:50] VITALS: BP 92/60
[2017-10-08 05:18] LABS: BASOPHILS % (AUTO) 0 % (0-10); EOSINOPHILS # (AUTO) 0.2 10^3/uL (0.0-0.3); EOSINOPHILS % (AUTO) 2 % (0-10); HEMATOCRIT 28 % (35-52); HEMOGLOBIN 9.6 G/DL (11.5-16.0); LYMPHOCYTES # (AUTO) 2.2 X 10^3 (1.0-4.0); LYMPHOCYTES % (AUTO) 19 % (12-44); MEAN CORPUSCULAR HEMOGLOBIN 29 PG (25-34); MEAN CORPUSCULAR HGB CONC 35 G/DL (32-36); MEAN CORPUSCULAR VOLUME 84 FL (80-99); MONOCYTES # (AUTO) 0.9 X 10^3 (0.0-1.0); MONOCYTES % (AUTO) 8 % (0-12); NEUTROPHILS # (AUTO) 8.1 X 10^3 (1.8-7.8); NEUTROPHILS % (AUTO) 72 % (42-75); PLATELET COUNT 119 10^3/uL (130-400); RED BLOOD COUNT 3.28 10^6/uL (4.35-5.85); RED CELL DISTRIBUTION WIDTH 13.6 % (10.0-14.5); WHITE BLOOD COUNT 11.4 10^3/uL (4.3-11.0)
[2017-10-08] MEDS: AMPICILLIN/SULBACTAM INJECTION 1.5 GM in NS (IVPB) 100 ML IV SCH (06:42)
[2017-10-08] MEDS: CATHETER FLUSH 10 ML SYR IV SCH (06:43)
[2017-10-08 08:15] VITALS: BP 104/72
--- NOTE | 2017-10-08 10:29 | Postpartum Progress Note ---
Post Op Post-operative Day #2 s/p PTCS, FTD,chorioamnionitis, severe anemia. s/p 2 units PRBCS. Stable. Feeling better. Subjective: Patient is without complaints. Ambulating, voiding after miller removed. Tolerating a regular diet without nausea or vomiting. Normal lochia. Pain is well controlled with oral pain medications. Passing flatus. breast (and pumping ) feeding. Objective: Laboratory Tests Test 10/08/17 05:10 Range/Units White Blood Count 11.4 H 4.3-11.0 10^3/uL Red Blood Count 3.28 L 4.35-5.85 10^6/uL Hemoglobin 9.6 #L 11.5-16.0 G/DL Hematocrit 28 L 35-52 % Mean Corpuscular Volume 84 80-99 FL Mean Corpuscular Hemoglobin 29 25-34 PG Mean Corpuscular Hemoglobin Concent 35 32-36 G/DL Red Cell Distribution Width 13.6 10.0-14.5 % Platelet Count 119 L 130-400 10^3/uL Mean Platelet Volume 11.0 H 7.4-10.4 FL Neutrophils (%) (Auto) 72 42-75 % Lymphocytes (%) (Auto) 19 12-44 % Monocytes (%) (Auto) 8 0-12 % Eosinophils (%) (Auto) 2 0-10 % Basophils (%) (Auto) 0 0-10 % Neutrophils # (Auto) 8.1 H 1.8-7.8 X 10^3 Lymphocytes # (Auto) 2.2 1.0-4.0 X 10^3 Monocytes # (Auto) 0.9 0.0-1.0 X 10^3 Eosinophils # (Auto) 0.2 0.0-0.3 10^3/uL Basophils # (Auto) 0.0 0.0-0.1 10^3/uL 10/08/17 10/08/17 00:22 03:50 Temp 97.8 98.0 Pulse 86 71 Resp 16 16 B/P (MAP) 125/84 (98) 92/60 (71) Pulse Ox 100 98 O2 Delivery Room Air Room Air 10/08/17 00:00 Intake Total 1490 ml Output Total 1400 ml Balance 90 ml Physical Exam: General - Alert and oriented, no apparent distress Abdomen - Soft, appropriately tender to palpation, non-distended, fundus firm at umbilicus Incision - clean, dry and intact; no erythema or induration, no drainage Extremities - no edema, negative Derek's bilaterally Assessment: 1. post-operative day # 2, status post PLTCS. Recovering well, hemodynamically stable 2. Acute blood loss anemia - s/p 2 units PRBCs, stable on iron 3. chorioamnionitis. Afebrile. s/p antibiotics x 48 hours. Plan: Routine post-operative care. Encourage breast feeding. Encourage ambulation. VTE prophylaxis: SCDs. Ferrous sulfate supplementation. Plan for discharge today. Vitals - Labs Vital Signs - I&O Vital Signs Date Time Temp Pulse Resp B/P (MAP) Pulse Ox O2 Delivery O2 Flow Rate FiO2 10/08/17 03:50 98.0 71 16 92/60 (71) 98 Room Air 10/08/17 00:22 97.8 86 16 125/84 (98) 100 Room Air 10/07/17 22:00 98.0 88 16 104/70 (81) 99 Room Air 10/07/17 21:45 88 16 104/70 (81) 98 Room Air 10/07/17 21:30 98.0 76 16 96/64 100 Room Air 10/07/17 21:15 73 16 94/63 98 Room Air 10/07/17 21:00 98.0 87 16 99/69 99 Room Air 10/07/17 20:45 81 18 104/70 97 Room Air 10/07/17 20:30 81 18 96/64 98 Room Air 10/07/17 20:15 74 16 96/69 98 Room Air 10/07/17 20:00 98.2 81 16 104/72 98 Room Air 10/07/17 19:45 81 18 104/73 99 Room Air 10/07/17 19:30 75 18 102/76 100 Room Air 10/07/17 19:15 98.0 82 18 115/82 100 Room Air 10/07/17 19:00 98.1 86 16 108/76 100 Room Air 10/07/17 18:15 97.4 76 16 102/72 Room Air 10/07/17 18:00 97.4 84 16 91/63 (72) 98 Room Air 10/07/17 17:00 97.5 75 16 91/59 (70) 97 Room Air 10/07/17 16:15 97.7 77 16 87/56 98 Room Air 10/07/17 16:15 97.7 77 16 87/56 (66) 97 Room Air 10/07/17 16:00 97.6 77 16 94/54 98 Room Air 10/07/17 16:00 97.6 77 16 94/54 (67) 98 Room Air 10/07/17 14:00 97.3 10/07/17 12:02 97.4 96 14 102/64 (77) 98 Room Air 10/07/17 11:55 97.1 91 16 98/60 (73) 98 Room Air I & O 10/08/17 07:00 Intake Total 3490 ml Output Total 3000 ml Balance 490 ml Labs Laboratory Tests 10/08/17 05:10: White Blood Count 11.4H, Red Blood Count 3.28L, Hemoglobin 9.6#L, Hematocrit 28L , Mean Corpuscular Volume 84, Mean Corpuscular Hemoglobin 29, Mean Corpuscular Hemoglobin Concent 35, Red Cell Distribution Width 13.6, Platelet Count 119L, Mean Platelet Volume 11.0H, Neutrophils (%) (Auto) 72, Lymphocytes (%) (Auto) 19 , Monocytes (%) (Auto) 8, Eosinophils (%) (Auto) 2, Basophils (%) (Auto) 0, Neutrophils # (Auto) 8.1H, Lymphocytes # (Auto) 2.2, Monocytes # (Auto) 0.9, Eosinophils # (Auto) 0.2, Basophils # (Auto) 0.0 Microbiology 10/06/17 Urine Culture - Final, Complete FOREIGN MURPHY DO October 08, 2017 10:29
[2017-10-08] MEDS ORDERED: FERROUS SULF 325 MG (IRON) TAB PO ONE (11:09)
[2017-10-08] MEDS: FERROUS SULF 325 MG (IRON) TAB PO SCH ×2 (11:17→18:07)
[2017-10-08 12:00] VITALS: BP 98/71
[2017-10-08 16:55] VITALS: BP 102/69
[2017-10-09] VITALS: BP 101/69
[2017-10-09] MEDS: IBUPROFEN 600 MG (MOTRIN) TAB PO SCH ×3 (06:00→18:03)
[2017-10-09 06:04] VITALS: BP 115/80
[2017-10-09] MEDS ORDERED: IBUP-844 PO ×2 (07:54)
[2017-10-09] MEDS ORDERED: ACHD5005 PO ×2 (07:54)
[2017-10-09] MEDS ORDERED: DOCU100C37 PO ×2 (07:54)
[2017-10-09] MEDS ORDERED: FERR325T18 PO ×2 (07:54)
--- NOTE | 2017-10-09 07:57 | Discharge Inst-Women's Service ---
Discharge Inst-Women's Serv Depart Medication/Instructions New, Converted or Re-Newed RX: RX on Chart Instructions no lifting over 25 lbs no driving for 1 weeks nothing in the vagina for 6 weeks Final Diagnosis labor failure to descend chorioamnionitis acute blood loss anemia Procedure - Primary section, with cervical extension and T (never will be a TOLAC candidate) Consults/Follow Up Additional Follow Up: Yes (1-2 weeks with Amy; [address] Stokes) Activity Activity: Activity as Tolerated Driving Instructions: You May Drive NO SMOKING: NO SMOKING Nothing Inside Vagina: No Douching, No Henriette, No Tampons Diet Discharge Diet: No Restrictions Symptoms to Report to : Bleeding Excessive, Pain Increased, Fever Over 101 Degrees F, Vaginal Bleeding Increase, Cramps in Feet or Legs, Vaginal Discharge Foul For Any Problems or Questions: Contact Your Physician Skin/Wound Care Infection Signs and Symptoms: Increased Redness, Foul Odor of Wound, Increased Drainage, Skin Itchy or Has a Rash, Increased Swelling, Temperature Above 101 F Operative Area Clean and Dry: Keep Incision Clean/Dry Stitches/[place]/Dermabond: Dermabond Bathing Instructions: FOREIGN Nowak DO October 09, 2017 07:57
--- NOTE | 2017-10-09 09:09 | Postpartum Progress Note ---
Post Op Post-operative Day #3 s/p PLTCS Subjective: Patient is without complaints. Ambulating, voiding after miller removed. Tolerating a regular diet without nausea or vomiting. Normal lochia. Pain is well controlled with oral pain medications. Passing flatus. Objective: 10/09/17 10/09/17 00:00 06:04 Temp 96.6 97.2 Pulse 85 67 Resp 16 16 B/P (MAP) 101/69 (80) 115/80 (92) Pulse Ox 97 98 O2 Delivery Room Air Room Air 10/09/17 00:00 Intake Total 1250 ml Output Total 1700 ml Balance -450 ml Physical Exam: General - Alert and oriented, no apparent distress Abdomen - Soft, appropriately tender to palpation, non-distended, fundus firm at umbilicus Incision - clean, dry and intact; no erythema or induration, no drainage Extremities - no edema, negative Derek's bilaterally Assessment: 1 post-operative day # 3, status post PLTCS. Recovering well, hemodynamically stable 2. Acute blood loss anemia s/p 2 units PRBCS 3. chorioamnionitis. antibiotics discontinued yesterday. Plan: Routine post-operative care. Encourage breast feeding. Encourage ambulation. VTE prophylaxis: SCDs. Ferrous sulfate supplementation. Plan for discharge today Vitals - Labs Vital Signs - I&O Vital Signs Date Time Temp Pulse Resp B/P (MAP) Pulse Ox O2 Delivery O2 Flow Rate FiO2 10/09/17 06:04 97.2 67 16 115/80 (92) 98 Room Air 10/09/17 00:00 96.6 85 16 101/69 (80) 97 Room Air 10/08/17 16:55 97.2 80 16 102/69 (80) 99 Room Air 10/08/17 12:00 97.0 68 16 98/71 (80) 99 Room Air I & O 10/09/17 07:00 Intake Total 2350 ml Output Total 1700 ml Balance 650 ml Labs Microbiology 10/06/17 Urine Culture - Final, Complete FOREIGN MURPHY DO October 09, 2017 09:09
--- NOTE | 2017-10-09 09:16 | Discharge Summary ---
Diagnosis/Chief Complaint Date of Admission Oct 06, 2017 at 08:17 Date of Discharge Discharge Date: October 09, 2017 Admission Diagnosis Admission Diagnosis labor Discharge Diagnosis Labor Failure to descend chorioamnionitis acute blood loss anemia s/p PLTCS with T and cervical extension (patient is not a candidate for TOLAC or ) transfusion of 2 units of PRBCs Discharge Summary Hospital Course Hospital Course Patient was admitted by Dr. Varela for labor. Had latent labor for several days, but admitted on 10/06/17 in labor. Labs had been done on 10/05/17 and hgb was 12.4. She reached complete dilation (please see Dr. Varela's notes and my cs note) but then had failure to descend/ tachycardia and maternal fever after over 2 hours of pushing. I was consulted for primary section. The head had very large caput and the bony head was still at 0 station/ OT position. The section was complicated by blood loss at time of CS over 800. There was a cervical extension and the incision had to be T'd to facilitate the delivery of the infant. After surgery she was continued on Unasyn (she was given azithromycin and Ancef preoperatively). The nurses continued Ancef as well for 2 doses (due to confusion of preop vs postoperative antibiotics). the unasyn was discontinued after 48 hours afebrile. She had post operative hemoglobin of 7.3 on POD 1 and was symptomatic ( tachycardia and dizzy with decreased UO) so 2 units of PRBCs were given. She then had post transfusion hemoglobin of 9.6. she was continued on iron after this as well. Her postoperative pain management was routine (toradol and Dilaudid and then ibuprofen and lortab). She was given a maternity belt to wear as well. She is breast and bottle feeding. On postoperative day 3, she was discharged to home or parent room in stable condition. Labs Laboratory Tests 10/06/17 10:40: Urine Specific [place] 1.005L, Urine Glucose (UA) 1+H 10/07/17 05:55: White Blood Count 13.2H, Red Blood Count 2.56L, Hemoglobin 7.3#L, Hematocrit 21L , Mean Platelet Volume 11.5H, Neutrophils (%) (Auto) 84H, Lymphocytes (%) (Auto ) 9L, Neutrophils # (Auto) 11.1H 10/08/17 05:10: White Blood Count 11.4H, Red Blood Count 3.28L, Hemoglobin 9.6#L, Hematocrit 28L , Mean Platelet Volume 11.0H, Neutrophils # (Auto) 8.1H, Platelet Count 119L Procedures None. Discharge Physical Examination Allergies: Coded Allergies: No Known Drug Allergies (Unverified , 10/04/17) Vitals & I&Os Vital Signs Date Time Temp Pulse Resp B/P (MAP) Pulse Ox O2 Delivery O2 Flow Rate FiO2 10/09/17 06:04 97.2 67 16 115/80 (92) 98 Room Air General Appearance: Alert, Oriented X3 Respiratory: Clear to Auscultation Cardiovascular: Regular Rate, Normal S1, Normal S2 Abdominal: Normal Bowel Sounds, Other (Inc C/DI) Discussion & Recommendations Discharged to home on pod #3. Discharge Home Medications Reviewed and agree with Discharge Medication list on patient's Discharge Instruction sheet Condition at Discharge stable Instructions to Patient/Family Please see electronic discharge instructions given to patient. Clinical Quality Measures DVT/VTE Risk/Contraindication: Risk Factor Score Per Nursin RFS Level Per Nursing on Admit: 1=Low/No VTE PPX FOREIGN MURPHY DO October 09, 2017 09:16
[2017-10-09 09:30] VITALS: BP 102/65
[2017-10-09] MEDS: DOCUSATE SODIUM 100 MG (COLACE) CAP PO SCH (09:49)
[2017-10-09] MEDS: FERROUS SULF 325 MG (IRON) TAB PO SCH (09:50)
[2017-10-09 12:30] VITALS: BP 102/72
[2017-10-09 19:20] VITALS: BP 102/72
== END 2017-10-09 19:20 | disposition home or self-care (01) | DRG 765 ==
LOC: LDRP 03:59 → WSo 03:59 → LDRP 05:00 → WSo 05:00 → OBSVTOIN 08:17 → LDRP 19:00 → UNDODISIN 10-09 19:20
PROVIDERS: ADMIT Family Medicine; ATTEND Family Medicine
PROC: 10D00Z1 Extraction of Products of Conception, Low, Open Approach (ICD-10-PCS; principal; 2017-10-07)
DX: O62.0 Primary inadequate contractions (principal); O41.1230 Chorioamnionitis, third trimester, not applicable or unspecified; O90.81 Anemia of the puerperium; D62 Acute posthemorrhagic anemia; O33.9 Maternal care for disproportion, unspecified; O32.2XX0 Maternal care for transverse and oblique lie, not applicable or unspecified; O77.0 Labor and delivery complicated by meconium in amniotic fluid; O76 Abnormality in fetal heart rate and rhythm complicating labor and delivery; Z3A.39 39 weeks gestation of pregnancy; Z37.0 Single live birth
CPT/HCPCS: 36415; 81000; 85025; 86850; 86900; 86901; 86920; 87088; 88307; 94664; 99212